=== PATIENT | female | born 1960 | race Caucasian/White ===

== ENCOUNTER → 2016-08-29 | Day surgery (SDC) | payer OTHER ==
--- NOTE | 2016-08-23 20:19 | MH ---
cc: JOSE ANTONIO SHERIDAN MD, CECILLE A. M.D. DATE OF ADMISSION: 08/29/2016 REASON FOR ADMISSION: Transobturator tape. HISTORY OF PRESENT ILLNESS: The patient is a 56-year-old white female 3, para 2 who has had issues with bladder dysfunction for several years. She had a sling placed in 2005. It is not clear if this is a biologic or a permanent sling; nevertheless, it ceased being functional a few years ago. She has had exam by urology who notes hypermobility of the urethra and a urodynamics test that shows a leak point at 96 with no significant postvoid residual or uninhibited detrusor contraction. She had cystoscopy at that time and that was normal as well. At this point, the patient wants to proceed with repeat sling for stress incontinence. PAST MEDICAL HISTORY: The patient's medical history is notable for: 1. Lgrsc-0-[id number] deficiency. 2. Issues with asthma. 3. Hyperlipidemia. 4. Irritable bowel syndrome. 5. Fibromyalgia. 6. Osteoarthritis. PAST SURGICAL HISTORY: 1. Sling procedure for incontinence. 2. Rufino fundoplication. 3. Cholecystectomy. GYNECOLOGIC HISTORY: No STDs or abnormal Pap smears. OBSTETRICAL HISTORY: Two vaginal deliveries. FAMILY HISTORY: Noncontributory ALLERGIES: 1. SULFA. 2. RESTORIL. 3. LEVSIN. 4. CELEBREX CAUSES VOMITING. MEDICATIONS: 1. Xopenex Inhaler. 2. Xanax 0.25 milligrams three times a day PRN. 3. Lortab one p.o. three times a day PRN. 4. Skelaxin __ milligrams p.o. twice a day 5. Zoloft 50 milligrams daily. FAMILY HISTORY: Noncontributory. REVIEW OF SYSTEMS: As above. Multiple systemic issues with aches, pains, IBS symptoms, stress urinary incontinence as noted above and also has urgency issues. PHYSICAL EXAMINATION: VITAL SIGNS: On her exam, she is afebrile. Vital signs are stable. Blood pressure is 120/70. HEIGHT: 5 foot 5. WEIGHT: 182. BMI: 30. GENERAL: The patient alert and oriented and in no acute distress. No sign of cognitive dysfunction or depression. HEAD, EYES, EARS, NOSE, THROAT: Within normal limits. NECK: The neck is supple. No JVD. CHEST: Clear. HEART: Regular rate and rhythm. ABDOMEN: Abdomen soft and nontender. No hepatosplenomegaly. No CVA tenderness. PELVIC EXAM: Pelvic exam in the office shows A subscript a is minus 1, A subscript p is minus 1, Point C is minus 8. Genital hiatus is 5. Perineal body is 5. Total vaginal length is 10. Urethral hypermobility is noted with Q-Tip 30 degrees deviation. Postvoid residual was 20 cc. Levator strength is 3/5. Sacral nerve reflexes are normal. Further exam under anesthesia. EXTREMITIES: Normal. SKIN: Without rash. NEUROLOGIC: Nonfocal. No DVT signs. ASSESSMENT: A patient with stress and urge incontinence. She is aware that the sling procedure is designed to mainly improve stress incontinence and may do nothing for urge and actually may exacerbate it. She has made an informed choice to proceed. She does have some increased risk of damage to the urethra and other organs secondary her prior surgery. She is aware of the possibility of urinary retention, need for catheterization, fistula formation and possibility that she has continued incontinence. The patient has multiple medical issues, but she has undergone prior surgical procedures and general anesthesia without complications. She is going to use her inhaler on the morning of surgery and will leave it to anesthesia to decide if she needs any additional pulmonary treatments or steroid use. The patient is also aware that at times the pelvic floor defects are more obvious under anesthesia and she consents to any repair of additional prolapse. We anticipate an outpatient procedure. We will use antibiotic prophylaxis with Ancef 2 grams and DVT prophylaxis with sequential compression devices. MD JOHANNA Boyd/ELIA /4:31 PM /8:03 PM
[~2016-08-29] VITALS: Ht 170.2 cm; Wt 85.1 kg
[~2016-08-29] MED LIST: ALPR.25 PO; AZIT500T2 PO; BROMSYP PO; CHLORHEXIDINE GLUCONATE 2 % 1 PACK (2 CLOTHS) TOPICAL PRN; DEXAMETHASONE SOD PHOS 4 MG/ML VIAL ONE; FAMOTIDINE 20 MG/2 ML VIAL ONE; FLUORESCEIN SOD 10% SOLN 500 MG/5 ML AMP ONE; HYDR-3535 PO; INSULIN HUMAN REGULAR 1,000 UNITS/10 ML VIAL SQ PRN; LACTATED RINGER'S 1000 ML INJ 1,000 ML IV ONE; LACTATED RINGER'S 1000 ML IV PRN; LACTCAP8 PO; LIDOCAINE 1%/EPINEPHrine 1:100,000 SOLN 50 ML VIAL ONE; META800T81 PO; METHYLENE BLUE 100 MG/10 ML VIAL OTHER ONE; METOPROLOL TARTRATE 25 MG TAB PO PRN; MIDAZOLAM HCL 2 MG/2 ML VIAL ONE; MULTTAB67 PO; NEOSTIGMINE METHYLSULFATE 10 MG/10 ML VIAL IV PUSH ONE; ONDANSETRON HCL 4 MG/2 ML VIAL IV PUSH ONE; POVIDONE IODINE 5% (ANTISEPSIS KIT) 4 APPLICATIONS EACH NARE PRN; PROPOFOL 200 MG/20 ML AMP IV ONE; PROZ20CA11 PO; SODIUM CHLORID 0.9% 500 ML IV PRN; VITA-83 PO; XOPEAER4 INH; ceFAZolin 2 GM PREMIX 50 ML IV SCH; fentaNYL CITRATE 250 MCG/5 ML AMP ONE
[2016-08-29 09:06] VITALS: BP 115/83; PULSE 70; RESP 20; TEMP 98.4; O2SAT 95
--- NOTE | 2016-08-29 10:11 | EKG ---
Date Performed: 08/29/2016 Time Performed: 09:03:25 PTAGE: 56 years EKG: Sinus rhythm NORMAL ECG PREVIOUS TRACING : 06/24/2014 21.47 DOCTOR: Juan Diego Zhu Interpretating Date/Time 08/29/2016 10:09:34
[2016-08-29 14:22] VITALS: BP 149/79; PULSE 85; RESP 20; TEMP 98; O2SAT 98
--- NOTE | 2016-08-30 10:16 | MP ---
cc: JOSE ANTONIO SHERIDAN MD, CECILLE A. M.D. DATE OF PROCEDURE 08/29/2016 PREOPERATIVE DIAGNOSES Mixed urge and stress incontinence. History of prior sling placement POSTOPERATIVE DIAGNOSES Mixed urge and stress incontinence. History of prior sling placement PROCEDURE 1. Desara transobturator polypropylene sling manufactured by [employer] 2. Urethrolysis with excision of possible sling. 3. Cystoscopy coupled with a diagnosis of urge incontinence. SURGEON MD Meir ANESTHESIA Endotracheal. BLOOD LOSS 20 cc. TAX ACCOUNTING ASSISTANT [facility] staff x 2 FLUID 1000 cc crystalloid. URINE OUTPUT 100 cc. FINDINGS EXTERNAL GENITALIA: POP-Q score: Aa is 0, Ap is -1. Point C is -6. Total vaginal length is 10. Genital hiatus is 6. Perineal body is 4. Postop repair shows Aa is -3. Cystoscopy shows normal trigone, no significant abnormality of the trigone, dome or base of bladder that would explain her urge incontinence. There was significant scarring at the urethrovesical junction which was suggestive of potential area of prior sling placement. [facility] of tissue was sent for evaluation. SPECIMENS Possible sling versus scar. COMPLICATIONS None. DISPOSITION To Recovery stable. COUNTS Needle, instrument and sponge counts correct. DRAINS Reyes catheter. TIME-OUT PROCEDURE Per protocol. DVT PROPHYLAXIS Sequential compression device. ANTIBIOTIC PROPHYLAXIS Ancef 2 grams IV. SUMMARY OF INDICATIONS FOR PROCEDURE The patient with mixed incontinence, stress and urge component. Seems to have gotten worse since she had a sling placed several years ago. We have been unable to ascertain the nature of the sling. We are not sure if it was a biologic or a synthetic type sling but she has definitely had more issues with urge incontinence since the sling was placed. The patient has significant urge component which was never addressed with the prior sling placement. She is aware that the sling may actually exacerbate further urge issues. PROCEDURE The patient was taken to the operating theatre, identified, prepped and draped in a fashion appropriate for the planned procedure. She was placed in dorsal lithotomy position with careful attention paid to placement of legs in stirrups to avoid undue stress to sensitive neurovascular structures. The above findings were noted, neurovascular integrity documented. A Reyes catheter was placed and methylene blue instilled into the bladder. The obturator foramen on each side was identified and marked. We then infiltrated each foramen with epinephrine/lidocaine solution. The length of the urethra was ascertained by palpation of the Reyes bulb. Epinephrine/lidocaine infiltration was performed. There was significant scarring of the urethra to the mucosa suggestive of prior sling placement. We took the dissection down to the UVJ and there was a band of what appeared either to be old biologic sling or possibly just significant scarring. There was no evidence of any polypropylene or synthetic material. A sample of this tissue was removed. The band was clipped and divided to relieve tension at the UVJ. The C-hook was placed from a lateral to medial position on each side and a polypropylene sling was placed in the mid-urethra. The anterior repair was performed in standard fashion with delayed absorbable suture. The vaginal mucosa was trimmed and the tissues were closed with running Vicryl suture. Hemostatic matrix was used for hemostasis to obviate the need for packing. The cystoscopy was performed using a 17-Israeli bridge and a 70-degree scope, the above findings noted. It should be noted there was no spill of methylene blue during any of the dissection and with inspection of the urethra and the trigone as well as the dome of the bladder, there was no significant findings appreciated which would point to the etiology for her urge incontinence. Also, it should be noted that she had detrusor instability noted with exam under anesthesia with palpation of the anterior vaginal wall. She had obvious contraction and release of urine from the meatus. At this point the procedure was concluded. The patient went to Recovery in stable condition. With the division of this band at the UVJ, I would with hope that this would decrease her urge issues, but if she still continues to have significant urge issues, she may want to consider nerve stimulation or Botox. MD JOHANNA Boyd/JANETTE /12:50 PM /9:54 AM GIANFRANCO
== END | disposition home or self-care (01) ==
LOC: HSDC 08:27
PROVIDERS: ATTEND Obstetrics & Gynecology Gynecology
DX: N39.3 Stress incontinence (female) (male) (principal); N99.12 Postprocedural urethral stricture, female; N32.81 Overactive bladder; N36.41 Hypermobility of urethra; N39.45 Continuous leakage; M79.7 Fibromyalgia; E78.5 Hyperlipidemia, unspecified; J45.909 Unspecified asthma, uncomplicated; Z01.810 Encounter for preprocedural cardiovascular examination
CPT/HCPCS: 00860; 53500; 57288; 88305; 93005; C1771; J0690; J1100; J2250; J2405; J2710; J3010; J7120; 88300